=== PATIENT | male | born 1995 | race African-American/Black ===

== ENCOUNTER 2024-11-02 17:56 | Emergency (ER) | payer SELFPAY ==
[2024-11-02 18:14] VITALS: BP 125/70; PULSE 72; RESP 18; TEMP 98.4; BMI 22.4
[2024-11-02 20:56] LABS: BASO % 0.4 % (0-2.0); EOS % 1.7 % (0-4.5); HEMATOCRIT 43.8 % (35.4-49); HEMOGLOBIN 14.4 GM/dL (11.7-16.9); LYMPH % 44.5 % (8-40); MCHC 32.8 g/dl (32.0-35.9); MEAN CELL VOLUME 82.2 fl (80-96); MEAN PLT VOLUME 8.2 fl (7.5-11.1); MONO % 9.2 % (3.8-10.2); NEUT % 44.2 % (42.8-82.8); PLATELET COUNT 227 10^3/uL (134-434); RBC 5.33 M/mm3 (4.00-5.60)
[2024-11-02 21:05] LABS: INR 0.98 (0.83-1.09); PROTHROMBIN TIME (PATIENT) 11.1 SEC (9.7-13.0)
[2024-11-02 21:08] LABS: ACTIVATED PTT 32.5 SECONDS (25.2-36.5)
[2024-11-02 21:17] LABS: POTASSIUM 3.9 mmol/L (3.5-5.1)
[2024-11-02 21:19] LABS: ALBUMIN 4.1 g/dl (3.4-5.0); BLOOD UREA NITROGEN 17.4 mg/dL (7-18); CALCIUM 9.5 mg/dL (8.5-10.1); MAGNESIUM 2.2 mg/dL (1.8-2.4)
[2024-11-02 21:22] LABS: CREATININE 0.9 mg/dL (0.55-1.3)
[2024-11-02 21:24] LABS: BILIRUBIN,TOTAL 0.3 mg/dL (0.2-1); TOT PROT 7.3 g/dl (6.4-8.2)
== END 2024-11-02 23:48 | disposition home or self-care (01) ==
LOC: JER 17:56
DX: R07.9 Chest pain, unspecified (principal); N43.3 Hydrocele, unspecified; N50.811 Right testicular pain; N50.812 Left testicular pain
CPT/HCPCS: 36415; 71046-TC-FY; 76870-TC; 80053; 83735; 84484; 85025; 85610; 85730; 87491; 87591; 93005; 93010; 99285-25